=== PATIENT | male | born 1985 | race Caucasian/White ===

== ENCOUNTER 2017-10-10 14:19 | Emergency (ER) | payer MEDICAID, SELFPAY ==
[2017-10-10 14:20] VITALS: BP 131/89; PULSE 102; RESP 18; TEMP 36.6; O2SAT 99; BMI 25.2
--- NOTE | 2017-10-10 14:30 | RAD_ITS ---
STUDY: X-RAY - RIGHT HAND REASON FOR EXAM: Male, 32 years old. Laceration. TECHNIQUE: 3 view(s) of the hand. COMPARISON: None. FINDINGS: Normal radiocarpal articulation. Normal distal radioulnar joint. Normal visualized carpal bones. Normal carpal articulations Normal carpometacarpal articulation of the thumb. Normal second through fifth carpometacarpal joints. Normal metacarpi. Normal metacarpophalangeal joint of the thumb. Normal interphalangeal joint of the thumb. Normal proximal and distal phalanges of the thumb. Normal metacarpophalangeal joints of the second through fifth fingers. Old tiny ununited fracture of the anterior base of the second middle phalanx, otherwise normal proximal and distal interphalangeal joints of the second through fifth fingers. Normal phalanges of the second through fifth fingers. The soft tissue structures are unremarkable. No foreign bodies. RAD/Hand Min 3 Views IMPRESSION: No acute abnormality. Electronically Signed: Edd Amezcua MD at 14:48 EDT , Service support ,
[2017-10-10] MEDS: Diphth,Pertuss(Acell),Tet Vac 0.5 ML Vial IM (14:47)
--- NOTE | 2017-10-10 15:26 | ED.DCSUM_ITS ---
- ER Visit Summary Date of Service: 10/10/17 Chief Complaint: Right hand laceration History of Present Illness: The patient is a 32 M who was sharpening a sickle and sustained a laceration to the right hand. He thinks he may have cut the tendon as he sees a thick white piece of matter in the laceration. He denies any significant pain. There was some bleeding. Last tetanus unknown Physical Examination: Vital signs are reviewed. Right hand exam reveals a 2.5 cm laceration on the right hand on the dorsal side distal to the MCP joint of the third finger. There does appear to be a disruption in the extensor tendon. Test Results: Right hand x-ray is unremarkable Emergency Department Course and Treatment: I anesthetized the wound with 2 cc lidocaine. Under sterile conditions and good lighting I was able to identify the extensor tendon which was completely disrupted in half. I attempted to contact , but he would not take calls today. I spoke with Dr. Minor he states he does not do tendon repairs in to refer him to Dr. Thompson. I offered the patient that he could go to another facility that has a hand surgeon but he would rather have this closed and see Dr. Thompson as an outpatient. I then put 3, 4-0 nylon sutures. I will place him in an AlumaFoam splint and some degree of extension. I will place him on Keflex as well. His tetanus will be updated he will follow-up with as described Treatment Plan: [] Disposition: Discharge Impression: Right hand laceration, 2.5 cm Extensor tendon laceration, right third finger This note was generated with [employer] dictation software. It may contain incorrect words, spelling, and punctuation that were not noted in review of the chart prior to signing ED Disposition - Plan for ED Patient: Chief Complaint: Laceration Referrals: Travis Bhat MD [Primary Care Provider] -
--- NOTE | 2017-10-10 15:26 | ED.DEP ---
ED Disposition - Plan for ED Patient: Disposition: Home or Assisted Living Chief Complaint: Laceration Instructions: ED Laceration All Prescriptions: Cephalexin [Keflex] 500 mg PO Q6 #28 cap Referrals: Travis Bhat MD [Primary Care Provider] -
[2017-10-10] MEDS: Cephalexin 250 MG Capsule 500 MG PO (15:33)
[2017-10-10 15:43] VITALS: RESP 16
--- NOTE | 2017-10-10 15:43 | ED.RN ---
REVIEWED D/C INSTRUCTIONS, FOLLOW UP CARE, PRESCRIPTION, AND S/S THAT WOULD WARRANT A RETURN TO THE ED WITH PT. PT VERBALIZED AN UNDERSTANDING AND DENIES FURTHER QUESTIONS FOR THIS RN. PT SKIN P/W/D, RESP EVEN AND UNLABORED, PT A&O X 3, NO DISTRESS NOTED. PT AMBULATED OUT OF ED, GAIT STEADY.
== END 2017-10-10 15:51 | disposition home or self-care (01) ==
PROVIDERS: Emergency Provider Emergency Medicine; Family Provider Family Medicine; PCP Family Medicine
DX: S66.322A Laceration of extensor muscle, fascia and tendon of right middle finger at wrist and hand level, initial encounter (principal); S61.411A Laceration without foreign body of right hand, initial encounter; W27.8XXA Contact with other nonpowered hand tool, initial encounter; Y93.89 Activity, other specified; Y92.9 Unspecified place or not applicable; Z72.0 Tobacco use
CPT/HCPCS: 12001; 73130; 90471; 90715; 99284

== ENCOUNTER 2017-10-29 06:45 | Day surgery (SDC) | payer MEDICAID, SELFPAY ==
[2017-10-29] VITALS (8 sets, daily range): BP systolic 115–160; BP diastolic 69–106; PULSE 66–114; RESP 16–18; TEMP 36.3–36.7; O2SAT 94–98; BMI 26.2
--- NOTE | 2017-10-29 | TONS_PTH ---
PATIENT: WHITNEY OLIVEIRA LOC: [facility] [place] U[place][id number] AGE/SX: 32/M ROOM: RE10/29/[address]: Dr. Abhishek Younger MD : 1985 BED: DIS: 10/29/2017 SPEC #: [id number] RECD: 10/29/17 13:24 STATUS: KELLY ROBER #: [id number] ARIK: 10/29/17 00:[address]: Abhishek Younger DEPT: SURGICAL PATHOLOGY RECD BY: Howie Hwang ENTERED: 10/29/17 13:25 SP TYPE: TONSILS OTHR DR: Dr. Travis Bhat MD Tissues: A - Tonsil, NOS B - Tonsil, NOS Procedures: Surgery Specimen Level III HEADER OPERATION: Tonsillectomy PRE-OP DIAGNOSIS: Chronic tonsillitis TISSUE SUBMITTED: A ? Right tonsil, B ? Left tonsil MICROSCOPIC DIAGNOSIS A. Right tonsil, tonsillectomy: Reactive lymphoid hyperplasia, consistent with chronic tonsillitis. Focal actinomyces colonization. B. Left tonsil, tonsillectomy: Reactive lymphoid hyperplasia, consistent with chronic tonsillitis. Focal actinomyces colonization. THUY:pola 11/02/17 MICROSCOPIC DESCRIPTION Slides are reviewed. GROSS DESCRIPTION A - Received is one container labeled with the patient's name and designated right tonsil that weighs 4.4 gm and measures 3 x 2 x 1.5 cm. The external surface is pink-godinez, smooth, glistening and somewhat lobulated. Focally it is hemorrhagic, granular and bears cautery artifact. Serial cross sections through the tonsil reveal normal tonsillar architecture. Mig Welder sections are submitted in one cassette. B - Received is one container labeled with the patient's name and designated left tonsil that weighs 4 gm and measures 2.8 x 1.5 x 1.5 cm. The external surface is pink-godinez, smooth, glistening and somewhat lobulated. Focally it is hemorrhagic, granular and bears cautery artifact. Serial cross sections through the tonsil reveal normal tonsillar architecture. Mig Welder sections are submitted in one cassette. / THUY:pola 10/29/17 TC:3 CPT: 57725 x2
--- NOTE | 2017-10-29 06:57 | EKG12_ITS ---
Test Reason : PRE-OP Blood Pressure : / mmHG Vent. Rate : 057 BPM Atrial Rate : 057 BPM P-R Int : 172 ms QRS Dur : 114 ms QT Int : 392 ms P-R-T Axes : 000 054 041 degrees QTc Int : 381 ms Sinus bradycardia Otherwise normal ECG Confirmed by RASTA KWOK, TREY ([id number]), photo editor LUH ROCKWELL ([id number]) on 11/03/2017 3:19:47 PM Referred By: Abhishek Younger Confirmed By:TREY MAGDALENO MD
[2017-10-29 07:20] LABS: Hematocrit 42.9 % (40-54); Hemoglobin 14.5 g/dl (13.0-16.5); Mean Corp Hgb Conc 33.8 g/gl (32-36); Mean Corpuscular Hgb 29.9 pg (27.0-32.0); Mean Corpuscular Volume 88.5 fL (80-94); Mean Platelet Vol. 11.2 fl (6.2-12.0); Platelet Count 186 K/mm3 (150-450); RBC Distribution Width CV 12.8 % (11.6-14.6); RBC Distribution Width SD 41.5 fl (35.1-43.9); Red Blood Count 4.85 M/mm3 (4.6-6.2); White Blood Count 9.7 K/mm3 (4.4-11.0)
[2017-10-29 07:22] LABS: Scan Indicated on CBC? Y/N NO
--- NOTE | 2017-10-29 08:31 | PCM.OPRPT ---
Problem List (1) Chronic tonsillitis Status: Chronic Report of Operation Date of Procedure: 10/29/17 Pre-Operative Diagnosis: chronic tonsillitis Post-Operative Diagnosis: same Surgery/Procedure Performed:: Tonsillectomy Description of Surgical Findings:: Harman is a 32-year-old male with sensation of chronic sore throat with findings of deeply cryptic tonsillar hypertrophy with stones. Due to the significant discomfort of a recurrent nature of the above procedure was offered in hopes of relief and he was eager to proceed. The risks, alternatives, potential benefits, and complications were discussed at length and any questions answered to the patient and/or caregiver's satisfaction. Witnessed informed consent was obtained in the office, and the patient and/or caregiver was agreeable to proceed. Procedure went as follows: The patient was identified in the preoperative holding and brought to the operating room she was placed under general anesthesia and intubated. When appropriate anesthesia was obtained, the head of bed was rotated and the patient prepped and draped in usual sterile fashion. A Leilani Emmanuel mouthgag was then placed and the patient suspended from the Eddy stand. The oral cavity examined and is noted to have 3+ cryptic tonsillar hypertrophy with abundant stones. Beginning on the right side the right tonsil was then grasped with a curved tenaculum and dissected from the underlying capsule with monopolar cautery. This was then sent as specimen. Similar procedure was then completed on the contralateral side. The oral and nasal cavities were then irrigated with saline solution and an NG tube placed to decompress the stomach. An NG tube was then placed to decompress the stomach and the patient returned to anesthesia, revived and extubated having tolerated the procedure well. Type of Anesthesia:: General Anesthesiologist: Gustabo Harris Special Medications: none Specimen's removed: none Drains: none Estimated Blood Loss (mL): 0 mL Fluids Replaced: 1000 mL Grafts/Implants Used: none - Complications none - Admit VTE Documentation VTE Present on Admission: No VTE Mechan Device Prophylaxis: SCD's VTE Pharm Prophylaxis ordered?: No
--- NOTE | 2017-10-29 08:34 | PCM.DC.T&A ---
Discharge Diet: No Restrictions Discharge Activity: Return to Normal Activity, May not drive while taking narcotic pain medications. Call your doctor if your incision/area has: Continuous Slow Oozing, Sudden Increased Bleeding Call your doctor if you observe: Fever of 101 or Higher, Uncontrolled pain Allergies/Adverse Reactions: Allergies propoxyphene napsylate [From Darvocet-N] Allergy (Verified 10/25/17 11:23) Hives Medications to take at Discharge Ranitidine [Zantac] 150 mg PO DAILY PRN 12/21/16 Primary Care Physician: Travis Bhat MD [Primary Care Provider] - Please Follow Up With: Abhishek Younger MD When: 2 weeks
[2017-10-29] MEDS: Acetaminophen 325 MG Tablet 650 MG PO (09:59)
[2017-10-29] MEDS: Ibuprofen 100 MG/5 ML UDC 500 MG PO (10:30)
== END 2017-10-29 12:37 | disposition home or self-care (01) ==
LOC: SDC 06:46 → AC 06:47
PROVIDERS: Family Provider Family Medicine; PCP Family Medicine; Visit Provider Otolaryngology
PROC: (CPT 42826; principal; 2017-10-29 07:55)
DX: J35.01 Chronic tonsillitis (principal); K04.7 Periapical abscess without sinus; K13.21 Leukoplakia of oral mucosa, including tongue; B37.0 Candidal stomatitis; F17.200 Nicotine dependence, unspecified, uncomplicated; K21.9 Gastro-esophageal reflux disease without esophagitis
CPT/HCPCS: 42826; 36415; 85027; 88304; 93005; J7120; J2405

== ENCOUNTER 2023-07-19 06:34 | Emergency (ER) | payer MEDICAID, SELFPAY ==
[2023-07-19 06:35] VITALS: BP 207/163; PULSE 92; RESP 16; TEMP 35.4; O2SAT 100
[2023-07-19 06:40] VITALS: BP 207/163; PULSE 92; RESP 116; TEMP 35.4; O2SAT 100
--- NOTE | 2023-07-19 06:50 | RAD_ITS ---
STUDY: X-RAY - LEFT WRIST REASON FOR EXAM: Male, 38 years old. Pain TECHNIQUE: 3 view(s) of the wrist were obtained. COMPARISON: None. FINDINGS: There is no evidence of fracture or dislocation. There are no significant degenerative changes. There are no radiodense foreign bodies. RAD/Wrist min 3 Views IMPRESSION: No fracture or dislocation. Electronically Signed: Balta Landon MD at 7:57 EST ,
--- NOTE | 2023-07-19 07:10 | EDS_ITS ---
HPI History of Present Illness Chief Complaint: Upper Extremity Injury [facility] Medical History (Updated 07/19/23 @ 07:[address] Manuel Carlson, ) Epidural hematoma Hypertension Home Medications Ranitidine [Zantac] 150 mg PO DAILY PRN Indigestion 12/21/16 [History Last Taken Unknown] Allergy/AdvReac Type Severity Reaction Status Date / Time propoxyphene napsylate Allergy Hives Verified 10/25/17 11:23 [From Lidya-Avani] Social History Smoking Status: Current every day smoker tobacco type: e-cigarettes EXAM Physical Exam Const Vital Signs: 07/19/23 06:35 07/19/23 06:40 Temperature 95.7 F L 95.7 F L Temperature Source Temporal Temporal Pulse Rate 92 92 Respiratory Rate 16 116 H Blood Pressure 207/163 H 207/163 H Blood Pressure Mean 177 177 Pulse Ox 100 100 Oxygen Delivery Method Room Air Room Air [facility] [place] Narrative Medical decision making narrative: HISTORY OF PRESENT ILLNESS: 38-year-old male presents with left wrist swelling. Notes he works at [employer]. Notes use of the approximate 25 pound object and felt sharp pain in his left wrist. Is located in the shaft of the left forearm. Denies any falls or other trauma. Denies any numbness tingling or loss of sensation moving the left upper extremity. Denies any headache falls or other trauma to the head or neck area. REVIEW OF SYSTEMS: Pertinent positives: Left wrist pain and swelling Pertinent negatives: Numbness, tingling, loss sensation PHYSICAL EXAM: Nursing triage notes reviewed, Vital signs reviewed Constitutional: please see mdm Extremities: No edema, TTP over distal wrist, compartments are soft. Neuro: Intact 5/5 strength with ok sign (median), intact finger abduction (ulnar) intact wrist extension (radial n). Intact sensation in the radial, ulnar, and median nerve distributions. Skin: No rash or lesions noted MEDICAL DECISION MAKING: Chief Complaint: Left wrist pain External records reviewed: No recent adVanced imaging of the involved extremity Factors affecting care: none [facility] Narrative: Patient is initially hypertensive, tachycardic, afebrile. Exam without deformity, bony abnormality, pulse deficit or neurologic deficit. Compartments are soft. Range of motion was intact. There is mild TTP over the distal shaft of the forearm. I considered the following differential diagnosis: Wrist fracture, dislocation, sprain, septic arthritis, gouty arthritis Exam not consistent with septic arthritis, gouty arthritis. Concern for frac ture dislocation. Clinically most consistent with likely sprain. ALL IMAGES (IF OBTAINED) HAVE BEEN PERSONALLY REVIEWED AND INTERPRETED BY MYSELF. X-ray of the left wrist was read reviewed myself shows no evidence of obvious bony abnormality Gave ice instructions, gave Tylenol and ibuprofen instructions, wrist splint and work note. The patient and/or family, caregivers express understanding. The patient and/or family, caregivers agrees with the plan. Shared decision making: I will have a discussion with the patient and or visitors regarding risk/benefits of further testing or admission. They will be made aware of of the risk/benefits inherent in this decision they will be given the opportunity to voice understanding. Total critical care time today provided was at least 0minutes. This excludes separately billable procedures. Critical care time (if documented) is secondary to the patient having high probability of clinically significant/life threatening deterioration in the patient's condition which required my urgent intervention. Impression: 1. Left wrist sprain Dispo: Discharge home This note was generated with [employer] dictation software. It may contain incorrect words, spelling, and punctuation that were not noted in review of the chart prior to signing. Discharge Plan Triage Chief Complaint: Upper Extremity Injury ED Provider: Manuel Carlson Dx/Rx/DC Orders Clinical Impression: Left wrist sprain Instructions: ED Wrist Sprain, ED RICE Prescriptions: No Action Ranitidine [Zantac] 150 MG tablet 150 mg PO DAILY PRN (Reason: Indigestion) Stand Alone Forms: Work / School Excuse Primary Care Provider: Care Physician,No Primary Referrals: Darryn Graham DO [Med Staff - Active Staff] - Activity Restrictions/Additional Instructions: Thank you for trusting us with your care today! Please take Tylenol (2 pills, 650 mg), ibuprofen (2 pills, 400 mg) every 6 hours as needed for pain and fever control. Please use ice as needed for further pain control. Please wear the provided wrist splint for comfort. This can be taken off anytime for hygiene purposes Please return to the emergency department if your symptoms change or worsen. Specifically if develop loss sensation, increased pain, numbness tingling or decreased movement in the involved extremity. Please follow with your primary care physician and/or orthopedic surgery for further outpatient evaluation and management. Disposition Disposition: Home, Self Care
--- OUTSIDE RECORDS SUMMARY | 2023-07-19 07:33 | XMS RPT_ITS | CCD ---
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 oropharyngeal erythema. Eyes: General: Right eye: No discharge. Left eye: No discharge. Extraocular Movements: Extraocular movements intact. Conjunctiva/sclera: Conjunctivae normal. Pupils: Pupils are equal, round, and reactive to light. Cardiovascular: Rate and Rhythm: Normal rate and regular rhythm. Pulses: Normal pulses. Heart sounds: Normal heart sounds. No murmur heard. No friction rub. No gallop. Pulmonary: Effort: Pulmonary effort is normal. No respiratory distress. Breath sounds: Normal breath sounds. No stridor. No wheezing, rhonchi or rales. Chest: Chest wall: No tenderness. Abdominal: General: Abdomen is flat. There is no distension. Palpations: Abdomen is soft. There is no mass. Tenderness: T (more content not included)... [facility] History of Present illness Narrative 07-01-2022 Zainab Montero APRN.[facility] - 07/01/2022 8:37 AM EST Note Date & Type Note Facility 07-01-2022 History of Presen t illness Narrative Images from the original note were not included. This note was created using [employer]. Subjective Whitney Meyer is a 37 year old male. 37 year old male with PMH HTN, bipolar, and obesity presents for complaints right index finger laceration. 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 Denies feeling or sensation FB. Denies numbness or tingling Denies reduced or limited ROM Denies additional and/or accompanying injuries. Right hand dominant. Last Td2017 The history is provided by the patient. No speech language specialist was used. Laceration The incident occurred 3 to 6 hours ago. The laceration is located on the Right hand. The laceration is 1 cm in size. Injury mechanism: pocket knife. The pain is at a severity of 5/10. The pain is moderate. The pain has been Constant since onset. He reports no foreign bodies present. PAST MEDICAL HISTORY Diagnosis Date Cervicalgia Class 2 obesity due to excess calories without serious comorbidity with body mass index (BMI) of 37.0 to 37.9 in adult Headache(604.0) 06/07/2006 epidural hematoma- fall HTN (hypertension) Lumbago PAST SURGICAL HISTORY Procedure Laterality Date PAST SURGICAL HISTORY OF 03/24/07 Left parietal craniotomy and evacuation of epidermal hematoma TOOTH EXTRACTION [address] Flynn VASECTOMY UNI/BI SPX W/POSTOP SEMEN EXAMS 06/13/14 ALLERGIES Darvocet A500 [Propoxyphene N-Acetaminophen] MEDICATIONS buprenorphine-naloxone (SUBOXONE) 8-2 mg film DISSOLVE TWO films UNDER THE TONGUE EVERY DAY lisinopril-hydroCHLOROthiazide (PRINZIDE,ZESTORETIC) 10-12.5 mg per tablet Take 1 tablet by mouth every morning. (Patient not taking: Reported on 07/01/2022) FAMILY HISTORY Problem Relation Age of Onset Psychiatry Mother Heart Mother Hypertension Mother Lipids Mother Stroke Mother Heart Father Hypertension Father Stroke Father Cancer Maternal Grandmother Colon Cancer Maternal Grandfather Cancer Maternal Grandfather Stroke Maternal Grandfather Prostate Cancer Maternal Uncle Diabetes Maternal Uncle Breast Cancer Maternal Aunt Social History Tobacco Use Smoking status: Every Day Packs/day: 1.00 Years: 11.00 Pack years: 11.00 Types: Cigarettes Last attempt to quit: 04/27/2014 Years since quittin.1 Smokeless tobacco: Former Tobacco comments: 5 cigarettes/day Substance Use Topics Alcohol use: No Alcohol/week: 2.5 standard drinks Types: 1 Cans of Beer (12oz) per week Drug use: No Review of Systems Constitutional: Negative for activity change, appetite change, chills, fatigue and fever. Eyes: Negative for pain, discharge and itching. Respiratory: Negative for apnea, choking and chest tightness. Cardiovascular: Negative for chest pain, palpitations and leg swelling. Gastrointestinal: Negative for abdominal pain, diarrhea, nausea and vomiting. Musculoskeletal: Negative for back pain and gait problem. Skin: Positive for wound. Negative for color change, pallor and rash. Allergic/Immunologic: Negative for environmental allergies, food allergies and immunocompromised state. Neurological: Negative for dizziness, facial asymmetry, light-headedness and headaches. Hematological: Negative for adenopathy. Does not bruise/bleed easily. Psychiatric/Behavioral: Negative for agitation and behavioral problems. Objective BP 138/96 Pulse 106 Temp 36.4 C (97.5 F) Resp 21 Wt 113.1 kg (249 lb 6.4 oz) SpO2 97% BMI 35.55 kg/m Physical Exam Vitals and nursing note reviewed. Constitutional: General: He is not in acute distress. Appearance: Normal appearance. He is not ill-appearing, toxic-appearing or diaphoretic. HENT: Head: Normocephalic and atraumatic. Right Ear: External ear normal. Left Ear: External ear normal. Nose: Nose normal. No congestion or rhinorrhea. Mouth/Throat: Mouth: Mucous membranes are moist. Pharynx: Oropharynx is clear. No oropharyngeal exudate or posterior oropharyngeal erythema. Eyes: General: Right eye: No discharge. Left eye: No discharge. Extraocular Movements: Extraocular movements intact. Conjunctiva/sclera: Conjunctivae normal. Pupils: Pupils are equal, round, and reactive to light. Cardiovascular: Rate and Rhythm: Normal rate and regular rhythm. Pulses: Normal pulses. Heart sounds: Normal heart sounds. No murmur heard. No friction rub. No gallop. Pulmonary: Effort: Pulmonary effort is normal. No respiratory distress. Breath sounds: Normal breath sounds. No stridor. No wheezing, rhonchi or rales. Chest: Chest wall: No tenderness. Abdominal: General: Abdomen is flat. There is no distension. Palpations: Abdomen is soft. There is no mass. Tenderness: There is no abdominal tenderness. There is no guarding or rebound. Hernia: No hernia is present. Musculoskeletal: General: No swelling, tenderness, deformity or signs of injury. Normal range of motion. Hands: Cervical back: Normal range of motion and neck supple. No rigidity or tenderness. Right lower leg: No edema. Left lower leg: No edema. Comments: Right proximal index finger with V shaped laceration. No active bleeding +flexion +extension Brisk cap refill Lymphadenopathy: Cervical: No cervical adenopathy. Skin: General: Skin is warm and dry. Capillary Refill: Capillary refill takes less than 2 seconds. Coloration: Skin is not jaundiced or pale. Findings: No bruising, lesion or rash. Neurological: General: No focal deficit present. Mental Status: He is alert and oriented to person, place, and time. Cranial Nerves: No cranial nerve deficit. Sensory: No sensory deficit. Motor: No weakness. Coordination: Coordination normal. Gait: Gait normal. Deep Tendon Reflexes: Reflexes normal. Psychiatric: Mood and Affect: Mood normal. Behavior: Behavior normal. Thought Content: Thought content normal. Assessment and Plan ASSESSMENT/PLAN: 1. 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 Patient requesting glue Discussed the disadvantages of glue with being on a tension line Wound was soaked and cleansed in betasept Tissue adhesive applied Aluminum finger splint RICE therapy OTC analgesics Discussed wound care Follow up for wound check Zainab Montero APRN.GROCERY SPECIALIST documented in this encounter [facility] Evaluation note Note Date & Type Note Facility documented in this encounter [facility] Evaluation note Note Date & Type Note Facility documented in this encounter [facility] Summary Purpose Family History No Family History Records FoundNo Family History Records FoundNo Family History Records Found Advance Directives No Advanced Directives Records FoundNo Advanced Directives Records FoundNo Advanced Directives Records Found Additional Source Comments (unrecognized sect ion and content) No Status Records FoundNo Status Records FoundNo Status Records Found INFORMATION SOURCE (unrecogn ized section and content) DATE CREATED AUTHOR AUTHOR'S ORGANIZ ATION 06/22/2022 [facility] DATE CREATED AUTHOR AUTHOR'S ORGANIZ ATION 01/30/2023 [facility] Source Comments (unrecognize d section and content) In the event this informatio n is protected by the Federal Confidentiality of Alcohol and Drug Abuse Patient Records regulations: The Federal rules restrict any use of the information to criminally investigate or prosecute any alcohol or drug abuse patient[facility] event this information is protected by the Federal Confidentiality of Alcohol and Drug Abuse Patient Records regulations: The Federal rules restrict any use of the information to criminally investigate or prosecute any alcohol or drug abuse patient.[facility] Reason for Visit (unrecogniz ed section and content) Reason Comments Burn Top of L foot burn x 2 weeks Care Teams (unrecognized sec tion and content) Swimming Professor Relationship Specialty Start Date End Date Miguel Townsend MD [address] [place] [address] PCP - General Family Medicine 04/15/21 FOR RECORDS PERTAINING TO PATIENTS WHO ARE OR HAVE BEEN ENROLLED IN A CHEMICAL DEPENDENCY/SUBSTANCEABUSE PROGRAM, SOME INFORMATION MAY BE OMITTED. This clinical summary was aggregated from multiple sources. Caution should be exercised in using it in the provision of clinical care. This summary normalizes information from multiple sources, and as a consequence, information in this document may materially change the coding, format and clinical context of patient data. In addition, data may be omitted in some cases. CLINICAL DECISIONS SHOULD BE BASED ON THE PRIMARY CLINICAL RECORDS. [employer] provides no warranty or guarantee of the accuracy or completeness of information in this document.
[2023-07-19 07:57] VITALS: BP 156/84; PULSE 86; RESP 16; O2SAT 95; BMI 30.9
[2023-07-19 08:16] VITALS: O2SAT 97
--- NOTE | 2023-07-19 08:19 | ED.RN ---
Pt was upset about results. Pt stated that the xrays are wrong and we (the staff) are wrong. He stated that he feels grinding in his arm. Pt was on his phone playing a game the entire time that this nurse was in the room. Dr Carlson is aware of patient being upset.
== END 2023-07-19 08:22 | disposition home or self-care (01) ==
LOC: ED 07:32
PROVIDERS: Emergency Provider Emergency Medicine; Visit Provider Emergency Medicine
DX: S63.92XA Sprain of unspecified part of left wrist and hand, initial encounter (principal); X58.XXXA Exposure to other specified factors, initial encounter; Y93.89 Activity, other specified; Y99.0 Civilian activity done for income or pay; F17.290 Nicotine dependence, other tobacco product, uncomplicated
CPT/HCPCS: 73110; 99283

== ENCOUNTER → 2024-06-15 | Outpatient (CLI) | payer MEDICAID, SELFPAY ==
--- NOTE | 2024-06-15 18:30 | RAD_ITS ---
STUDY: X-RAY - UNILATERAL RIBS ( RIGHT ) WITH CHEST REASON FOR EXAM: Male, 39 years old. CONTUSIONS OF THORAX TECHNIQUE - RIBS: 4 view(s) of the ribs. TECHNIQUE - CHEST: Single frontal view of the chest. COMPARISON: None. FINDINGS - RIBS: Normal visualized ribs without a demonstrated fracture. FINDINGS - CHEST: The lungs are clear and expanded. There are granulomatous calcifications in the left lung. There is no demonstrated pleural abnormality. Normal size heart. Normal mediastinum and hever. Normal visualized pulmonary arteries. Normal visualized aortic arch and descending thoracic aorta. Normal visualized thoracic spine. Normal visualized ribs, clavicles, and shoulders. There is no demonstrated abnormality of the visualized soft tissue structures of the upper abdomen. RAD/Ribs Uni Min 3V w/PA Chest IMPRESSION: RIBS: Normal x-ray examination of the ribs. CHEST: No demonstrated acute cardiopulmonary process. Electronically Signed: Tay Malik MD at 20:38 EST ,
--- NOTE | 2024-06-15 18:30 | RAD_ITS ---
STUDY: X-RAY - PELVIS AND RIGHT HIP REASON FOR EXAM: Male, 39 years old. CONTUSION OF RIGHT HIP TECHNIQUE: 3 views of the pelvis and hip. COMPARISON: None. FINDINGS: There is a normal bowel gas pattern. There are multiple calcified phleboliths. Normal bilateral iliac wings, sacroiliac joints and visualized sacrum. Normal bilateral superior and inferior pubic rami. Normal pubic symphysis. Normal bilateral ischial tuberosities. There is cam deformity of the femoral head. Normal acetabulum. Normal hip joint. There is no fracture. RAD/HIP, UNI W/ Pelvis 2-3 Views IMPRESSION: No fracture. Electronically Signed: Tay Malik MD at 21:52 EST ,
--- NOTE | 2024-06-15 18:30 | RAD_ITS ---
STUDY: X-RAY - LUMBAR SPINE REASON FOR EXAM: Male, 39 years old. SPRAIN OF LIGAMENTS TECHNIQUE: 4 view(s) of the lumbar spine were obtained. COMPARISON: None FINDINGS: Normal lumbar lordosis. There is no substantial scoliosis. There is a normal alignment of the vertebrae. Normal vertebral bodies and endplates. Normal disc space heights. There is no demonstrated fracture. The soft tissue structures are unremarkable. RAD/L/S Spine Min 4 Views IMPRESSION: Normal x-ray examination of the lumbar spine. Electronically Signed: Tay Malik MD at 20:23 EST ,
== END | disposition home or self-care (01) ==
PROVIDERS: Referring Provider Nurse Practitioner Family; Visit Provider Nurse Practitioner Family
DX: S20.20XA Contusion of thorax, unspecified, initial encounter (principal); S70.01XA Contusion of right hip, initial encounter; S33.5XXA Sprain of ligaments of lumbar spine, initial encounter
CPT/HCPCS: 71101; 72110; 73502

== ENCOUNTER 2024-08-03 16:39 | Emergency (ER) | payer MEDICAID, SELFPAY ==
[2024-08-03] VITALS (8 sets, daily range): BP systolic 156; BP diastolic 94; PULSE 49–54; RESP 11–19; TEMP 36.9; O2SAT 95–99; BMI 33.2
--- NOTE | 2024-08-03 16:42 | EKG12_ITS ---
Test Reason : CHEST PAIN Blood Pressure : */* mmHG Vent. Rate : 51 BPM Atrial Rate : 51 BPM P-R Int : 188 ms QRS Dur : 118 ms QT Int : 412 ms P-R-T Axes : 3 7 33 degrees QTcB Int : 379 ms Sinus bradycardia Incomplete right bundle branch block Borderline ECG Confirmed by Darryn Nunez ([id number]), legal editor CELINA HO ([id number]) on 08/07/2024 10:03:32 AM Referred By: Confirmed By: Darryn Nunez
--- NOTE | 2024-08-03 16:50 | RAD_ITS ---
PROCEDURE: Chest radiographs REASON FOR EXAM: Chest pain TECHNIQUE: Frontal and lateral views of the chest. COMPARISON: 06/15/2024 FINDINGS: Cardiomediastinal silhouette is within normal limits. Lungs are clear. No sizable pneumothorax. Left perihilar calcified pulmonary granulomas. RAD/Chest PA and Lateral IMPRESSION: No acute airspace abnormality. Reading Location: [facility]
--- NOTE | 2024-08-03 17:16 | ED.VIS.CHEST ---
HPI History of Present Illness Chief Complaint: Chest Other Narrative Narrative: Patient is a 39-year-old male past medical his hypertension, epidural hematoma who presented to the emergency department chief complaint of cough, shortness of breath and chest discomfort. Patient states that he has shortness of breath with movement and notes that his chest hurts when he coughs or moves. He states that he has had this for about 3 days and denies any sick contacts. Patient denies any recent travels denies any history of blood clots. Patient states that he does vape denies any alcohol use or drug use. Denies any sick contacts [facility] Medical History Hypertension Epidural hematoma Home Medications ?Medication ?Instructions ?Recorded ?Last Taken ?Type Ranitidine [Zantac] 150 mg PO DAILY PRN Indigestion 12/21/16 Unknown History Allergy/AdvReac Type Severity Reaction Status Date / Time propoxyphene napsylate (From Allergy Hives Verified 08/03/24 16:42 Darvocet-N) Social History (Updated 08/03/24 @ 18:04 by Nena Ordoñez) household members: family Smoking Status: Current every day smoker tobacco type: e-cigarettes ROS ROS ED ROS Narrative Constitutional: Denies fevers, chills, headaches, lightness, dizziness Cardiovascular: Complains of chest discomfort with coughing and movement denies palpitations Respiratory: Complains of cough and shortness of breath as noted above Abdomen: Denies abdominal pain nausea vomit diarrhea : Denies urinary symptoms Neurological: Denies numbness, weakness, tingling Musculoskeletal: Denies back pain Skin: Denies rashes or lesions EXAM Physical Exam Narrative Exam Narrative: General: Patient lying in bed rest comfortably did not appear to be acute distress Head: Atraumatic, normocephalic Eyes: PERRL bilaterally, EOMI bilateral, no conjunctival injection noted Neck: Soft, supple and trachea midline Cardiovascular: Patient bradycardic with a regular rhythm no murmurs gallops rubs noted Respiratory: Clear to auscultation bilaterally no rales rhonchi or wheezes noted Abdomen: Soft, nondistended, nontender to palpation Extremities: +5/5 strength noted in the bilateral upper and lower extremities, radial pulses +2/4 in the bilateral extremities Neurological: Patient following commands knew that he was at [facility] year is 2024 Skin: Warm, dry, intact no rashes or lesions noted Const Vital Signs: 08/03/24 16:39 08/03/24 17:43 08/03/24 17:45 Temperature 98.4 F Temperature Source Temporal Pulse Rate 53 L 54 L Respiratory Rate 16 12 Respiratory Effort Blood Pressure 156/94 H Blood Pressure Mean 114 Pulse Ox 99 95 98 Oxygen Delivery Method Room Air Room Air 08/03/24 17:45 08/03/24 17:45 08/03/24 18:00 Temperature Temperature Source Pulse Rate 51 L 54 L 49 L Respiratory Rate 16 13 11 L Respiratory Effort Blood Pressure Blood Pressure Mean Pulse Ox 98 96 95 Oxygen Delivery Method 08/03/24 18:15 08/03/24 18:30 08/03/24 18:45 Temperature Temperature Source Pulse Rate 51 L 52 L 53 L Respiratory Rate 16 12 16 Respiratory Effort Blood Pressure Blood Pressure Mean Pulse Ox 97 96 97 Oxygen Delivery Method 08/03/24 19:00 08/03/24 19:20 Temperature Temperature Source Pulse Rate 54 L Respiratory Rate 19 H Respiratory Effort Normal Non-Labored Blood Pressure Blood Pressure Mean Pulse Ox 96 Oxygen Delivery Method MDM MDM MDM Narrative Medical decision making narrative: Patient is a 31-year-old male who presented to the emergency department with a chief complaint of cough, shortness of breath and chest discomfort with movement or coughing. On the differential diagnose includes but not limited to costochondritis, pneumonia, pneumothorax, influenza, COVID. Once workup is obtained reviewed he will be reevaluated. Patient denies any early family history of cardiac . Patient CBC reviewed and was largely unremarkable no evidence to suggest this with blood count was 6.4, hemoglobin 13.8, plate count noted to be normal at 194. Patient's sodium normal 142, potassium normal 3.7, creatinine was normal at 0.63. Patient's chest x-ray reviewed by myself and by radiology showed no acute cardiopulmonary processes. Patient's workup was largely unremarkable here therefore added on a D-dimer. Patient D-dimer was noted be normal at 0.27. Patient's EKG reviewed and independently interpreted myself showed sinus bradycardia with a rate of 51 bpm. On reevaluation patient is feeling better he would like to go home at this point time. Patient advised to rotate Tylenol and ibuprofen [id number] for his chest wall pain and encourage hydration. This is day 3 of illness for him. He is advised to follow-up with primary care physician which she was referred to. He is encouraged return with worsening symptoms and concerns. His significant other at bedside is also agreed this plan all question concerns answered is discharged home in stable condition. Lab Data Labs: Laboratory Results - last 24 hr 08/03/24 08/03/24 17:25 18:51 WBC 6.4 RBC 4.71 Hgb 13.8 Hct 39.3 L MCV 83.4 MCH 29.3 MCHC 35.1 RDW Std Deviation 36.6 RDW Coeff of Sherley 12.0 Plt Count 194 MPV 11.4 Immature Gran % (Auto) 0.200 Neut % (Auto) 41.8 L Lymph % (Auto) 49.7 H [place] % (Auto) 6.1 Eos % (Auto) 1.6 Baso % (Auto) 0.6 Absolute Neuts (auto) 2.7 Absolute Lymphs (auto) 3.18 Nucleated RBC % 0 D-Dimer Quant (PE/DVT) 0.27 Sodium 142 Potassium 3.7 Chloride Direct 108 Carbon Dioxide 23.7 Anion Gap 10 BUN 17 Creatinine 0.63 L Estim Creat Clear Calc 198.70 Est GFR (MDRD) Non-Af 125 BUN/Creatinine Ratio 26.4 H Glucose 107 H Calcium 8.8 Radiography Diagnostic Testing: Clinical Impression(s) from Imaging Studies Chest X-Ray 08/03/24 16:50 IMPRESSION: No acute airspace abnormality. Reading Location: [facility] Discharge Plan Triage Chief Complaint: Chest Other ED Provider: Miald Padgett Dx/Rx/DC Orders Clinical Impression: Chest pain, Cough Prescriptions: No Action Ranitidine [Zantac] 150 MG tablet 150 mg PO DAILY PRN (Reason: Indigestion) Primary Care Provider: Care Physician,No Primary Referrals: Care Physician,No Primary [Primary Care Provider] - Zainab Disla, INDUSTRIAL MECHANIC-C [[facility]] - Activity Restrictions/Additional Instructions: Patient rotate Tylenol and ibuprofen [id number] when you do this you can take something over 3 hours max dose Tylenol is 4000 mg. Max dose of ibuprofen is 3200 mg. Encourage hydration. Return with worsening symptoms or any concerns. Follow-up with primary care physician that you referred to. Print Language: Polish Disposition Disposition: Home, Self Care
[2024-08-03 17:46] LABS: Absolute Lymphocyte Count 3.18 X10^3/uL (0.83-4.51); Absolute Neutrophil Count 2.7 X10^3/uL (2.0-7.7); Basophil# 0.04 X10^3/uL; Basophil% 0.6 % (0-1); Eosinophils% 1.6 % (0-5); Hematocrit 39.3 % (40-54); Hemoglobin 13.8 g/dL (13.0-16.5); Lymphocyte # 3.18 X10^3/ul (0.83-4.51); Lymphocyte % 49.7 % (19-41); Mean Corp Hgb Conc 35.1 g/dL (32-36); Mean Corpuscular Hgb 29.3 pg (27.0-32.0); Mean Corpuscular Volume 83.4 fL (80-94); Mean Platelet Vol. 11.4 fl (6.2-12.0); Monocyte# 0.39 X10^3/uL; Monocyte% 6.1 % (0-10); NRBC Flagged by Analyzer 0 % (0-5); Neutrophil # 2.68 X10^3/uL (2.7-7.7); Neutrophil % 41.8 % (47-70); Platelet Count 194 K/mm3 (150-450); RBC Distribution Width SD 36.6 fl (35.1-43.9); Red Blood Count 4.71 M/mm3 (4.6-6.2); White Blood Count 6.4 K/mm3 (4.4-11.0)
[2024-08-03 18:10] LABS: Anion Gap 10 (5-15); BUN 17 mg/dL (4-19); BUN/Creat Ratio 26.4 RATIO (10-20); Calcium 8.8 mg/dL (7.6-11.0); Carbon Dioxide 23.7 mmol/L (22.0-29.0); Chloride 108 mmol/L (96-108); Creatinine, Serum 0.63 mg/dL (0.70-1.20); EST Glomerular Filtration Rate 125 (>60); Glucose 107 mg/dL (70-99); Potassium 3.7 mmol/L (3.3-5.1); Sodium Level 142 mmol/L (133-145)
[2024-08-03 19:12] LABS: D-Dimer Quantitative (DVT/PE) 0.27 FEU/ug/m (0.27-0.49)
== END 2024-08-03 19:46 | disposition home or self-care (01) ==
PROVIDERS: Emergency Provider Emergency Medicine; Visit Provider Emergency Medicine
DX: R07.9 Chest pain, unspecified (principal); R05.9 Cough, unspecified; F17.290 Nicotine dependence, other tobacco product, uncomplicated
CPT/HCPCS: 71046; 80048; 85025; 85379; 87631; 93005; 99284; A4216